=== PATIENT | female | born 1965 | race Caucasian/White ===

== ENCOUNTER 2021-02-11 17:27 | Observation (INO) ==
[2021-02-11] MEDS ORDERED: SODIUM CHLORIDE 0.9% 500 ML IV STA (20:01)
[2021-02-11] MEDS ORDERED: DIPH/TET/ACEL PERT BOOSTER VACCINE 0.5 ML VIAL IM ONE (20:01)
[2021-02-11] MEDS ORDERED: ONDANSETRON 4 MG/2 ML VIAL IV STA (20:29)
[2021-02-11] MEDS ORDERED: MORPHINE 4 MG/1 ML VIAL IV STA (20:29)
[2021-02-11 20:42] LABS: Basophils % 0.4 % (0.0-0.8); Eosinophils # 0.2 10*3/uL (0.0-0.87); Hematocrit 36.1 VOL% (35.7-47.0); Hemoglobin 11.6 GM/DL (12.0-16.0); Immature Granulocytes % 0.2 %; Immature Granulocytes Absolute 0.02 #; Lymphocytes # 2.2 10*3/uL (1.4-4.0); Lymphocytes % 24.5 % (21.3-54.2); Mean Corpuscular HGB Conc 32.1 GM/DL (32-36); Mean Corpuscular Volume 84.1 FL (87-102); Mean Platelet Volume 10.3 FL (9.6-12.0); Monocytes % 5.7 % (1.7-12.7); Neutrophils % 67.2 % (38.7-73.9); Platelet Count 300 T/CUMM (130-400); Red Blood Count 4.29 MC/CUMM (3.8-5.5); Red Cell Distribution Width 13.5 % (9.3-17.3); White Blood Count 9.1 T/CUMM (4-12)
[2021-02-11 20:52] LABS: INR 1.1; PT Patient Result 12.5 SECS (10.5-12.0)
[2021-02-11 20:57] LABS: Alanine Aminotransferase < 9 U/L (13-56); Albumin 3.3 G/DL (3.4-5.0); Alkaline Phosphatase 111 U/L (45-117); Aspartate Amino Transferase 13 U/L (0-37); Blood Urea Nitrogen 20 MG/DL (7-18); Calcium 8.8 MG/DL (8.5-10.1); Carbon Dioxide 29 MMOL/L (21-32); Estimated Glom Filtration Rate 75 ML/MIN; Glucose 86 MG/DL (74-106); Osmolality,Calculated 278.5 MOS/KG (273-304); Potassium 3.5 MMOL/L (3.5-5.1); Sodium 139 MMOL/L (136-145)
[2021-02-11] MEDS ORDERED: ACETAMINOPHEN 325 MG TABLET PO PRN (21:41)
[2021-02-11] MEDS ORDERED: ONDANSETRON 4 MG/2 ML VIAL IV PRN (21:41)
[2021-02-11] MEDS: SODIUM CHLORIDE 0.9% 1,000 ML IV SCH (23:52)
[2021-02-11] MEDS: PIPERACILLIN/TAZOBACTAM 3,375 MG in SODIUM CHLORIDE 0.9% 100 ML IV SCH (23:52)
[2021-02-12] MEDS: HYDROmorphone 2 MG/1 ML VIAL IV PRN ×2 (04:48→17:22)
[2021-02-12 05:42] LABS: Basophils # 0.1 10*3/uL (0.0-0.2); Basophils % 0.6 % (0.0-0.8); Eosinophils # 0.2 10*3/uL (0.0-0.87); Eosinophils % 2.3 % (0.00-10.9); Hematocrit 30.4 VOL% (35.7-47.0); Hemoglobin 9.8 GM/DL (12.0-16.0); Immature Granulocytes % 0.6 %; Immature Granulocytes Absolute 0.06 #; Lymphocytes # 2.7 10*3/uL (1.4-4.0); Lymphocytes % 26.4 % (21.3-54.2); Mean Corpuscular HGB Conc 32.2 GM/DL (32-36); Mean Corpuscular Volume 84.9 FL (87-102); Mean Platelet Volume 11.1 FL (9.6-12.0); Monocytes % 6.3 % (1.7-12.7); Neutrophils % 63.8 % (38.7-73.9); Platelet Count 322 T/CUMM (130-400); Red Blood Count 3.58 MC/CUMM (3.8-5.5); Red Cell Distribution Width 13.4 % (9.3-17.3); White Blood Count 10.3 T/CUMM (4-12)
[2021-02-12 05:47] LABS: Alanine Aminotransferase < 9 U/L (13-56); Albumin 2.9 G/DL (3.4-5.0); Alkaline Phosphatase 107 U/L (45-117); Aspartate Amino Transferase 14 U/L (0-37); Blood Urea Nitrogen 21 MG/DL (7-18); Calcium 9.1 MG/DL (8.5-10.1); Carbon Dioxide 27 MMOL/L (21-32); Estimated Glom Filtration Rate 75 ML/MIN; Glucose 86 MG/DL (74-106); Osmolality,Calculated 276.7 MOS/KG (273-304); Potassium 3.9 MMOL/L (3.5-5.1); Sodium 138 MMOL/L (136-145)
[2021-02-12 06:02] LABS: Hypochromasia 1+; Microcytosis Slight; Platelet Estimate Adequate
[2021-02-12] MEDS: PIPERACILLIN/TAZOBACTAM 3,375 MG in SODIUM CHLORIDE 0.9% 100 ML IV SCH (06:10)
[2021-02-12] MEDS: SODIUM CHLORIDE 0.9% 1,000 ML IV SCH ×4 (06:10→23:13)
[2021-02-12] MEDS ORDERED: BUPIVACAINE MPF 0.25% 30 ML VIAL ONE (08:10)
[2021-02-12] MEDS ORDERED: LIDOCAINE 1%/EPI INJ 20 ML VIAL ONE (08:10)
[2021-02-12] MEDS ORDERED: propofoL 200 MG/20 ML VIAL IV ONE (08:32)
[2021-02-12] MEDS ORDERED: fentaNYL 100 MCG/2 ML VIAL ONE (08:32)
[2021-02-12] MEDS ORDERED: LIDOCAINE 2% 5 ML VIAL ONE (08:32)
[2021-02-12] MEDS ORDERED: SEVOFLURANE 1 UNIT/15 MINUTE INH ONE (08:32)
[2021-02-12] MEDS ORDERED: diphenhydrAMINE 50 MG/1 ML VIAL IV PRN (09:31)
[2021-02-12] MEDS ORDERED: ONDANSETRON 4 MG/2 ML VIAL IV PRN (09:31)
[2021-02-12] MEDS: PANTOPRAZOLE 40 MG TABLET PO SCH (10:01)
[2021-02-12] MEDS: SULFAMETHOX/TRIMETHOPRIM 800-160 MG TABLET PO SCH ×2 (10:01→20:26)
[2021-02-12] MEDS ORDERED: PROMETHAZINE 25 MG/1 ML VIAL ONE (10:11)
[2021-02-12] MEDS ORDERED: PROMETHAZINE 25 MG/1 ML VIAL IM PRN (10:12)
[2021-02-12] MEDS ORDERED: MEPERIDINE 25 MG/1 ML VIAL IM PRN (10:12)
[2021-02-12] MEDS: MEPERIDINE 25 MG/1 ML VIAL IV PRN ×2 (11:00→14:15)
[2021-02-12] MEDS: KETOROLAC 30 MG/1 ML VIAL IV SCH ×2 (15:22→20:26)
[2021-02-12] MEDS ORDERED: ENOXAPARIN 40 MG/0.4 ML SYRINGE SUBCUT SCH (15:30)
[2021-02-12] MEDS ORDERED: QUEtiapine 100 MG TABLET PO SCH (21:00)
[2021-02-13] MEDS: KETOROLAC 30 MG/1 ML VIAL IV SCH ×2 (02:30→09:09)
[2021-02-13] MEDS: SODIUM CHLORIDE 0.9% 1,000 ML IV SCH (06:22)
[2021-02-13] MEDS ORDERED: LINACLOTIDE 145 MCG CAPSULE PO SCH (06:30)
[2021-02-13] MEDS: HYDROmorphone 2 MG/1 ML VIAL IV PRN (07:51)
[2021-02-13] MEDS ORDERED: BENZTROPINE 1 MG TABLET PO SCH (09:00)
[2021-02-13] MEDS ORDERED: HydrOXYzine PAMOATE 25 MG CAPSULE PO SCH (09:00)
[2021-02-13] MEDS ORDERED: ASPIRIN EC 81 MG TABLET PO SCH (09:00)
[2021-02-13] MEDS: SULFAMETHOX/TRIMETHOPRIM 800-160 MG TABLET PO SCH (09:09)
[2021-02-13] MEDS: PANTOPRAZOLE 40 MG TABLET PO SCH (09:09)
[2021-02-13 11:42] VITALS: BP 103/47
== END 2021-02-13 12:24 | disposition home or self-care (01) ==
LOC: N.EDINP 17:27 → N.ED 17:27 → N.5E 02-12 07:54
PROVIDERS: ADMIT Surgery; ATTEND Surgery